=== PATIENT | female | born 1955 | race Caucasian/White ===

== ENCOUNTER 2017-08-07 06:20 | Day surgery (SDC) | payer OTHER ==
[2017-08-07] MEDS ORDERED: MIDAZOLAM 1 MG/ML 2 ML INJ ×2 (08:07→08:08)
[2017-08-07] MEDS ORDERED: FENTAnyl 50 MCG/ML VIAL (08:07)
== END 2017-08-07 09:15 | disposition home or self-care (01) ==
LOC: GIL 06:20
DX: Z12.11 Encounter for screening for malignant neoplasm of colon (principal); K64.4 Residual hemorrhoidal skin tags; K57.90 Diverticulosis of intestine, part unspecified, without perforation or abscess without bleeding
CPT/HCPCS: 45378